=== PATIENT | female | born 1975 | race Caucasian/White ===

== ENCOUNTER 2019-08-28 23:07 | Emergency (ER) | payer OTHER ==
[~2019-08-28] VITALS: Ht 167.6 cm; Wt 145.1 kg
[~2019-08-28 23:07] MED LIST: BUSP30TA PO; FLUT1DIS3 IH; LOSA25TA12 PO; MECL-95 PO; METF10007 PO; METF500T3 PO; ONDA4TAB7 PO
[2019-08-28 23:58] VITALS: BP 125/68
--- NOTE | 2019-08-28 23:58 | NUR ---
ARRIVAL PATIENT PRESENTS WITH COMPLAINTS OF DIZZINESS FOR THE PAST 5 DAYS. PATIENT REPORTS THAT SHE HAS BEEN OFF OF HER BP MED FOR A YEAR AND WAS STARTED BACK ON LOSARTAN 5 DAYS AGO AND HAS BEEN EXPERIENCING DIZZINESS AND NAUSEA SINCE. ANISA. MD JEN NOTIFIED.
[2019-08-29 00:23] VITALS: BP 128/66
[2019-08-29] MEDS ORDERED: ANTIVERT PO STA (00:23)
--- NOTE | 2019-08-29 00:30 | ER.PDOC ---
General Chief Complaint: Requesting Medical Care Stated Complaint: DIZZINESS Time seen by MD: 00:28 Source: patient Exam Limitations: no limitations History of Present Illness Initial Comments Dizziness after she was started on Losartan 5 days ago for hypertension. Severity: moderate Usually: walks w/o assistance Worsened By: nothing Allergies: Coded Allergies: codeine (Unverified Allergy, Unknown, 05/11/14) doxycycline (Unverified Allergy, Unknown, 05/11/14) Home Meds Active Scripts Meclizine Hcl (MECLIZINE HCL) 25 Mg Tablet, 25 MG PO Q8HR, #14 TABLET Prov:MADDY BURGOS MD 11/02/15 Ondansetron Hcl (ZOFRAN) 4 Mg Tablet, 4 MG PO Q8HR, #14 TABLET Prov:MADDY BURGOS MD 11/02/15 Metformin Hcl (GLUCOPHAGE XR) 500 Mg Tab.er.24h, 1000 MG PO DAILY, #30 Prov:MADDY BURGOS MD 11/02/15 Reported Medications Fluticasone/Salmeterol (ADVAIR 250-50 DISKUS) 1 Each Disk.w.dev, 1 PUFF IH DAILY, #1 INHALER 5 Refills 10/31/15 Buspirone Hcl (BUSPIRONE HCL) 30 Mg Tablet, 1 TAB PO DAILY, #60 TAB 2 Refills 10/31/15 Losartan Potassium (LOSARTAN POTASSIUM) 25 Mg Tablet, 1 TAB PO DAILY, #90 TAB 3 Refills 10/31/15 Past Medical History Medical History: hypertension Surgical History: no surgical history Social History Drug Use: none Review of Systems Constitutional: no symptoms reported Ears: dizziness Mouth: no symptoms reported Throat: no symptoms reported Respiratory: no symptoms reported Cardiovascular: no symptoms reported Gastrointestinal: no symptoms reported All Other Systems: Reviewed and Negative Physical Exam General Appearance: alert, no distress Neck: supple Respiratory: no resp distress, breath sounds nml CVS: reg rate & rhythm, heart sounds.nml Abdomen: non-tender, no organomegaly, no distention Extremities: non-tender, nml ROM, no pedal edema Neuro/Psych: nml orientation, nml speech/cognition, nml mood/affect Cranial Nerves: nml as tested, no evidence of acute CVA Sensorimotor: nml motor, nml sensation Results/Orders Results/Orders Orders - WILBER LI MD Cbc With Auto Diff (08/29/19 00:23) Comprehensive Metabolic Panel (08/29/19 00:23) Ct Head Wo Contrast (08/29/19 00:23) Ekg-Routine (08/29/19 00:23) Troponin I (08/29/19 00:23) Meclizine Hcl (Antivert) (08/29/19 00:23) Administered Medications Medications (Trade) Dose Ordered Sig/Darrell Route PRN Reason Start Time Stop Time Status Last Admin Dose Admin Meclizine HCl (Antivert) 25 mg STAT STAT PO 3 00:23 08/29/19 00:27 DC 08/29/19 00:42 25 MG Laboratory Tests Test 08/29/19 00:33 White Blood Count 7.7 10^3/uL (4.5-11.0) Red Blood Count 4.40 10^6/uL (4.00-5.20) Hemoglobin 12.7 g/dL (12.0-15.0) Hematocrit 38.4 % (36.0-46.0) Mean Corpuscular Volume 87.3 fL (78-100) Mean Corpuscular Hemoglobin 28.9 pg (26-34) Mean Corpuscular Hemoglobin Concent 33.1 g/dL (33-36.5) Red Cell Distribution Width 13.2 % (11.5-14.5) Platelet Count 277 10^3/uL (150-400) Mean Platelet Volume 9.1 fL (7.8-11.0) Neutrophils (%) (Auto) 68.4 % (41.0-85.0) Lymphocytes (%) (Auto) 19.7 % (24.0-44.0) L Monocytes (%) (Auto) 7.6 % (5.0-12.0) Neutrophils # (Auto) 5.3 10^3/uL (1.8-7.7) Lymphocytes # (Auto) 1.52 10^3/uL1 (1.0-4.8) Monocytes # (Auto) 0.6 10^3/uL (0.3-0.8) Absolute Immature Granulocyte (auto 0.03 10^3 u/L (0-2) Absolute Eosinophils (auto) 0.3 10^3/uL (0.0-0.2) H Immature Granulocytes % 0.40 % (0.00-0.50) Eosinophils % 3.4 % (0.0-5.0) Basophils % 0.5 % (0.0-0.2) H Basophils # 0.0 10^3/uL (0.0-0.1) Sodium Level 136 mmol/L (132-145) Potassium Level 3.6 mmol/L (3.6-5.2) Chloride Level 102.0 mmol/L (96-109) Carbon Dioxide Level 25.4 mmol/L (20.0-32) Anion Gap 12.2 Blood Urea Nitrogen 19 mg/dL (7-18) H Creatinine 0.82 mg/dL (0.59-1.40) Estimated GFR () 91.6 (>/=60) Est GFR (CKD-EPI)(Non-Afr [place]) 75.7 (>/=60) BUN/Creatinine Ratio 23.0 Glucose Level 142 mg/dL (70-110) H Calcium Level 8.4 mg/dL (8.4-10.5) Total Bilirubin 0.3 mg/dL (0.2-1.0) Aspartate Amino Transferase (AST) 16 U/L (0-35) Alanine Aminotransferase (ALT) 21 U/L (12-78) Alkaline Phosphatase 71 U/L (50-136) Troponin I < 0.02 ng/mL (0.00-0.05) Total Protein 7.6 g/dL (6.4-8.2) Albumin 3.4 g/dL (3.4-5.0) Globulin 4.2 Progress Progress Reviewed labs and CT results with the patient. She is feeling better. Her dizziness most likely from Losartan and will need to follow up with her PCP tomorrow. EKG/XRAY/CT/US EKG Comments: Normal CT Comments: No acute intracranial abnormality Departure Time of Disposition: 02:01 Disposition: 01 HOME, SELF-CARE Impression: Primary Impression: Dizziness Condition: Improved Referrals: PCP,UNKNOWN (PCP) PRIMARY CARE PROVIDER Additional Instructions: Meclizine F/U with your PCP tomorrow Return to ED if worsening symptoms or concerns. Duration or Time Spent with Pa: 60 mins WILBER LI MD Aug 29, 2019 00:30
[2019-08-29 00:38] LABS: BASOPHIL % 0.5 % (0.0-0.2); EOSINOPHIL # 0.3 10^3/uL (0.0-0.2); EOSINOPHIL % 3.4 % (0.0-5.0); LYMPHOCYTES # 1.52 10^3/uL1 (1.0-4.8); LYMPHOCYTES % 19.7 % (24.0-44.0); MEAN CORP HGB 28.9 pg (26-34); MONOCYTES # 0.6 10^3/uL (0.3-0.8); MONOCYTES % 7.6 % (5.0-12.0); NEUTROPHIL # 5.3 10^3/uL (1.8-7.7); NEUTROPHILS % 68.4 % (41.0-85.0); PLATELET COUNT 277 10^3/uL (150-400); RED CELL DISTRIBUTION WIDTH 13.2 % (11.5-14.5)
[2019-08-29] MEDS ORDERED: ANTIVERT ONE (00:38)
[2019-08-29 01:05] LABS: ALANINE AMINOTRANSFERASE(ML) 21 U/L (12-78); ALKALINE PHOSPHATASE 71 U/L (50-136); ASPARTATE AMINO TRANSFERASE 16 U/L (0-35); CALCIUM 8.4 mg/dL (8.4-10.5); CARBON DIOXIDE 25.4 mmol/L (20.0-32); GLUCOSE 142 mg/dL (70-110)
[2019-08-29 01:18] VITALS: BP 120/63
[2019-08-29 01:48] VITALS: BP 124/84
--- NOTE | 2019-08-30 16:57 | DIREP ---
PROCEDURE:CT HEAD WITHOUT CONTRAST TECHNIQUE:Axial cuts were obtained through the head, without intravenous contrast material. The images were viewed at brain and bone settings. COMPARISON:None. INDICATIONS:dizziness FINDINGS: VENTRICLES:Normal. CEREBRUM:Normal. CEREBELLUM:Normal. BRAINSTEM:Normal. SKULL:Normal. SINUSES:Normal. OTHER:Negative. CONCLUSION:No acute intracranial hemorrhage or mass effect. If signs and symptoms persist MRI may be beneficial. Dictated by: Jason Coto MD on 08/29/2019 at 01:21 AM
--- NOTE | 2019-08-30 16:58 | PCM.EKG ---
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
== END 2019-08-29 02:28 | disposition home or self-care (01) ==
LOC: ER 23:07
DX: R42 Dizziness and giddiness (principal); I10 Essential (primary) hypertension; Z79.899 Other long term (current) drug therapy; Z88.1 Allergy status to other antibiotic agents; Z88.5 Allergy status to narcotic agent
CPT/HCPCS: 70450; 93005; 99284; J8597

== ENCOUNTER 2019-09-02 11:32 | Emergency (ER) | payer OTHER ==
[~2019-09-02] VITALS: Ht 167.6 cm; Wt 136.1 kg
[2019-09-02 11:37] VITALS: BP 161/97
--- NOTE | 2019-09-02 11:57 | ER.PDOC ---
General Chief Complaint: Nausea,Vomiting,Diarrhea Stated Complaint: POSS FLU Time seen by MD: 11:40 Source: patient, family Exam Limitations: no limitations History of Present Illness Initial Comments nausea, vomiting, fever and sore throat x 4 days Severity/Quality: mild Associated Symptoms (vomiting): mild vomiting Associated Symptoms (diarrhea): watery Allergies: Coded Allergies: codeine (Unverified Allergy, Unknown, 05/11/14) doxycycline (Unverified Allergy, Unknown, 05/11/14) Home Meds Active Scripts Meclizine Hcl (MECLIZINE HCL) 25 Mg Tablet, 25 MG PO Q8HR, #14 TABLET Prov:MADDY BURGOS MD 11/02/15 Ondansetron Hcl (ZOFRAN) 4 Mg Tablet, 4 MG PO Q8HR, #14 TABLET Prov:MADDY BURGOS MD 11/02/15 Metformin Hcl (GLUCOPHAGE XR) 500 Mg Tab.er.24h, 1000 MG PO DAILY, #30 Prov:MADDY BURGOS MD 11/02/15 Reported Medications Fluticasone/Salmeterol (ADVAIR 250-50 DISKUS) 1 Each Disk.w.dev, 1 PUFF IH DAILY, #1 INHALER 5 Refills 10/31/15 Buspirone Hcl (BUSPIRONE HCL) 30 Mg Tablet, 1 TAB PO DAILY, #60 TAB 2 Refills 10/31/15 Losartan Potassium (LOSARTAN POTASSIUM) 25 Mg Tablet, 1 TAB PO DAILY, #90 TAB 3 Refills 10/31/15 Vital Signs First Vital Signs Date Time Temp Pulse Resp B/P (MAP) Pulse Ox O2 Delivery O2 Flow Rate FiO2 09/02/19 11:37 98.6 91 18 95 09/02/19 12:07 161/97 (118) Room Air Last Vital Signs Date Time Temp Pulse Resp B/P (MAP) Pulse Ox O2 Delivery O2 Flow Rate FiO2 09/02/19 12:07 98.6 91 18 09/02/19 12:07 161/97 (118) 95 Room Air Past Medical History Medical History: diabetes, hypertension Surgical History: cancer surgery, cholecystectomy, hysterectomy Social History Drug Use: none Constitutional: see HPI EENTM: see HPI Respiratory: no symptoms reported Cardiovascular: no symptoms reported Gastrointestinal: see HPI Genitourinary: no symptoms reported Musculoskeletal: no symptoms reported Skin: no symptoms reported Psychiatric/Neurological: no symptoms reported All Other Systems: Reviewed and Negative Physical Exam General Appearance: Mild Distress HEENT: PERRL/EOMI, Normal ENT Inspection, TMs Normal, Pharynx Normal Neck: Non-Tender, Full Range of Motion, Supple, Normal Inspection Respiratory: chest non-tender, lungs clear, normal breath sounds, no respiratory distress, no accessory muscle use Cardiovascular: Normal Peripheral Pulses, Regular Rate, Rhythm, No Edema, No Gallop, No JVD, No Murmur Gastrointestinal: Normal Bowel Sounds, No Pulsatile Mass, Non Tender Back: Normal Inspection, No CVA Tenderness Extremities: Normal Range of Motion, Non-Tender, Normal Inspection, No Pedal Edema, No Calf Tenderness 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 NML as Tested, No Motor/Sensory Deficits, Normal Mood/Affect, Oriented x 3 Skin: Normal Color, Warm/Dry Lymphatic: No Adenopathy Results/Orders Results/Orders Orders - FLORIDALMA VASQUES [employer] Strep Screen (09/02/19 11:53) Influenza A&B (09/02/19 11:53) Promethazine Hcl (Phenergan) (09/02/19 12:19) Vital Signs Date Time Temp Pulse Resp B/P (MAP) Pulse Ox O2 Delivery O2 Flow Rate FiO2 09/02/19 12:07 98.6 91 18 09/02/19 12:07 98.6 91 18 161/97 (118) 95 Room Air 09/02/19 11:37 98.6 91 18 95 Laboratory Tests Test 09/02/19 11:54 Influenza Type A Antigen NEGATIVE (NEG) Influenza B Immunofluorescence NEGATIVE (NEG) Group A Streptococcus Screen NEGATIVE (NEGATIVE) Departure Time of Disposition: 12:35 Disposition: 01 HOME, SELF-CARE Impression: Primary Impression: Nausea & vomiting Condition: Stable Patient Instructions: Nausea and Vomiting, [id number] Referrals: PCP,UNKNOWN (PCP) PRIMARY CARE PROVIDER Additional Instructions: Return if symptoms worsen. See PCP as needed. Phenergan 25 mg tablet take one every 4-6 hours as need for nausea and vomiting x 5 days 20 # no refills Duration or Time Spent with Pa: 17 minutes Return to Work/School Can a patient return to work?: No Can a patient return to school: No Problem Qualifiers Primary Impression: Nausea & vomiting Vomiting type: unspecified Vomiting Intractability: intractable Qualified Codes: R11.2 - Nausea with vomiting, unspecified FLORIDALMA VASQUES NP Sep 02, 2019 11:57
[2019-09-02 12:07] VITALS: BP 161/97
[2019-09-02] MEDS ORDERED: PHENERGAN IM STA (12:19)
== END 2019-09-02 12:29 | disposition home or self-care (01) ==
LOC: ER 11:32
DX: R11.2 Nausea with vomiting, unspecified (principal); E11.9 Type 2 diabetes mellitus without complications; I10 Essential (primary) hypertension; Z79.899 Other long term (current) drug therapy; Z88.1 Allergy status to other antibiotic agents; Z88.5 Allergy status to narcotic agent; Z90.49 Acquired absence of other specified parts of digestive tract; Z90.710 Acquired absence of both cervix and uterus
CPT/HCPCS: 87070; 87804 ×2; 87880; 96372; 99283; J2550